=== PATIENT | male | born 1995 | race Caucasian/White ===

== ENCOUNTER → 2019-03-09 14:49 | Outpatient (CLI) | payer OTHER, SELFPAY ==
[2015-05-21 19:38] VITALS: BMI 40.5
[2019-03-09 17:35] LABS: Mean Corp Hgb Conc 31.9 g/dL (32-36); Mean Corpuscular Hgb 27.1 pg (27.0-32.0); Mean Platelet Vol. 12.2 fl (6.2-12.0); Platelet Count 230 K/mm3 (150-450); RBC Distribution Width CV 12.9 % (11.6-14.6); RBC Distribution Width SD 39.6 fl (35.1-43.9); Red Blood Count 5.53 M/mm3 (4.6-6.2); White Blood Count 11.2 K/mm3 (4.4-11.0)
[2019-03-09 18:18] LABS: Vitamin D,25 Hydroxy 20.5 ng/mL (29.95-100.01)
[2019-03-09 18:26] LABS: ALB/GLOB Ratio 0.8 RATIO (0.9-2.4); AST(SGOT) 37 U/L (15-37); Alanine Aminotransfer ALT/SGPT 64 U/L (16-61); Albumin, Serum 3.6 g/dL (3.2-5.0); Alkaline Phosphatase 80 U/L (45-117); Anion Gap 9 (5-15); BUN 17 mg/dL (7-18); BUN/Creat Ratio 21.2 RATIO (10-20); Calcium,Total 9.2 mg/dL (8.5-10.1); Chloride 103 mmol/L (98-107); Cholesterol 217 mg/dL (200); EST Glomerular Filtration Rate 124 mL/min (>60); Est Glom Filt Rate - Afr Amer 150 mL/min (>60); Globulin 4.8 g/dL (2.2-4.2); Glucose 69 mg/dL (74-106); High Density Lipoprotein 40 mg/dL; Potassium 3.7 mmol/L (3.5-5.1); Protein, Total 8.4 g/dL (6.4-8.2); Sodium Level 138 mmol/L (136-145); Thyroid Stim Hormone (TSH) 2.65 uIU/mL (0.358-3.74); Triglycerides 159 mg/dL; Very Low Density Lipoprotein 32 mg/dL (5-40)
== END ==
PROVIDERS: Family Provider Family Medicine; PCP Family Medicine; Referring Provider Family Medicine; Visit Provider Family Medicine
DX: Z00.00 Encounter for general adult medical examination without abnormal findings (principal); Z13.21 Encounter for screening for nutritional disorder; Z13.1 Encounter for screening for diabetes mellitus; Z13.220 Encounter for screening for lipoid disorders; Z13.29 Encounter for screening for other suspected endocrine disorder
CPT/HCPCS: 36415; 80053; 80061; 82306; 84443; 85027

== ENCOUNTER 2020-07-21 14:30 | Outpatient (RCR) | payer OTHER, SELFPAY ==
[2015-05-21 19:38] VITALS: BMI 40.5
== END 2020-09-26 23:59 ==
LOC: IMMUN 14:30
PROVIDERS: PCP Family Medicine; Visit Provider Family Medicine
DX: Z23 Encounter for immunization (principal)
CPT/HCPCS: 0001A; 0002A; 91300

== ENCOUNTER 2021-05-25 11:01 | Outpatient (CLI) | payer OTHER, SELFPAY ==
[2021-05-25 11:05] LABS: Bacteria 0 SEEN /hpf (None Seen); Mucous, Urine 0 SEEN /hpf (<or=2+); Red Blood Cells-Urine 0 SEEN /hpf (0-5); White Blood Cells 0 SEEN /hpf (0-5)
[2021-05-25 12:17] LABS: Color, Urine Yellow (Yellow); Glucose, Dipstick Normal (Normal); Ketone-Dipstick Negative (Negative); Leukocyte Esterase-Dipstick Negative /ul (Negative); Nitrite-Dipstick Negative (Negative); Occult Blood-Urine Negative /ul (Negative); Protein-Dipstick 30 mg/dl (Negative); Urine Bilirubin Dipstick Negative (Negative); Urine Clarity Clear (Clear); Urine Urobilinogen Normal (Normal)
[2021-05-25 12:18] LABS: Absolute Lymphocyte Count 3.24 X10^3/uL (0.83-4.51); Basophil# 0.06 X10^3/uL; Basophil% 0.6 % (0-1); Eosinophil# 0.25 X10^3/uL; Eosinophils% 2.3 % (0-5); Hematocrit 46.4 % (40-54); Hemoglobin 14.9 g/dL (13.0-16.5); Lymphocyte # 3.24 X10^3/ul (0.83-4.51); Lymphocyte % 30.2 % (19-41); Mean Corp Hgb Conc 32.1 g/dL (32-36); Mean Corpuscular Hgb 27.9 pg (27.0-32.0); Mean Corpuscular Volume 86.7 fL (80-94); Mean Platelet Vol. 11.3 fl (6.2-12.0); Monocyte# 1.08 X10^3/uL; Monocyte% 10.1 % (0-10); NRBC Flagged by Analyzer 0 % (0-5); Neutrophil # 6.03 X10^3/uL (2.7-7.7); Neutrophil % 56.1 % (47-70); Platelet Count 247 K/mm3 (150-450); RBC Distribution Width CV 12.9 % (11.6-14.6); RBC Distribution Width SD 40.5 fl (35.1-43.9); Red Blood Count 5.35 M/mm3 (4.6-6.2); White Blood Count 10.7 K/mm3 (4.4-11.0)
[2021-05-25 12:30] LABS: Squamous Epithelial Cells - UA 0-5 SEEN /hpf (0-5)
[2021-05-25 12:57] LABS: ALB/GLOB Ratio 0.8 RATIO (0.9-2.4); AST(SGOT) 73 U/L (15-37); Alanine Aminotransfer ALT/SGPT 142 U/L (16-61); Albumin, Serum 3.5 g/dL (3.2-5.0); Alkaline Phosphatase 76 U/L (45-117); Anion Gap 6 (5-15); BUN 19 mg/dL (7-18); BUN/Creat Ratio 21.8 RATIO (10-20); Calcium,Total 8.7 mg/dL (8.5-10.1); Chloride 105 mmol/L (98-107); Cholesterol 215 mg/dL (200); Creatinine, Serum 0.87 mg/dL (0.70-1.30); EST Glomerular Filtration Rate 111 mL/min (>60); Est Glom Filt Rate - Afr Amer 134 mL/min (>60); Globulin 4.2 g/dL (2.2-4.2); Glucose 94 mg/dL (74-106); High Density Lipoprotein 41 mg/dL; Potassium 4.7 mmol/L (3.5-5.1); Protein, Total 7.7 g/dL (6.4-8.2); Sodium Level 138 mmol/L (136-145); Thyroid Stim Hormone (TSH) 2.71 uIU/mL (0.358-3.74); Triglycerides 148 mg/dL; Very Low Density Lipoprotein 30 mg/dL (5-40)
== END 2021-05-25 23:59 | disposition short-term general hospital (02) ==
LOC: MFPLAB 11:03
PROVIDERS: PCP Family Medicine; Referring Provider Family Medicine; Visit Provider Family Medicine
DX: I10 Essential (primary) hypertension (principal)
CPT/HCPCS: 36415; 80053; 80061; 81001; 84443; 85025

== ENCOUNTER 2021-05-28 16:37 | Outpatient (CLI) | payer OTHER, SELFPAY ==
[2021-05-29 09:01] LABS: Hepatitis B Surface Antibody Non-Reactive; Hepatitis B Surface Antigen Non-Reactive (Nonreactive); Hepatitis C Antibody Non-Reactive (Nonreactive)
== END 2021-05-28 23:59 | disposition home or self-care (01) ==
LOC: MFPLAB 16:38
PROVIDERS: PCP Family Medicine; Visit Provider Family Medicine
DX: R94.6 Abnormal results of thyroid function studies (principal)
CPT/HCPCS: 86706; 86803; 87340

== ENCOUNTER → 2022-03-22 | Outpatient (CLI) | payer OTHER, SELFPAY ==
[2022-03-22 12:58] LABS: Bacteria 0 SEEN /hpf (None Seen); Mucous, Urine 0 SEEN /hpf (<or=2+); Red Blood Cells-Urine 0 SEEN /hpf (0-5); Squamous Epithelial Cells - UA 0 SEEN /hpf (0-5); White Blood Cells 0 SEEN /hpf (0-5)
[2022-03-22 15:25] LABS: Glucose, Dipstick Normal (Normal); Ketone-Dipstick Negative (Negative); Leukocyte Esterase-Dipstick Negative /ul (Negative); Nitrite-Dipstick Negative (Negative); Occult Blood-Urine Negative /ul (Negative); Protein-Dipstick 15 mg/dl (Negative); Specific Gravity, Urine 1.005 (1.002-1.030); Urine Bilirubin Dipstick Negative (Negative); Urine Urobilinogen Normal (Normal)
[2022-03-22 15:26] LABS: Color, Urine Yellow (Yellow); Urine Clarity Clear (Clear)
[2022-03-22 15:43] LABS: Absolute Lymphocyte Count 2.57 X10^3/uL (0.83-4.51); Absolute Neutrophil Count 4.7 X10^3/uL (2.0-7.7); Basophil# 0.04 X10^3/uL; Basophil% 0.5 % (0-1); Eosinophil# 0.21 X10^3/uL; Eosinophils% 2.5 % (0-5); Hematocrit 44.3 % (40-54); Hemoglobin 14.3 g/dL (13.0-16.5); Lymphocyte # 2.57 X10^3/ul (0.83-4.51); Lymphocyte % 30.5 % (19-41); Mean Corp Hgb Conc 32.3 g/dL (32-36); Mean Corpuscular Hgb 27.9 pg (27.0-32.0); Mean Corpuscular Volume 86.5 fL (80-94); Mean Platelet Vol. 12.1 fl (6.2-12.0); Monocyte# 0.92 X10^3/uL; Monocyte% 10.9 % (0-10); NRBC Flagged by Analyzer 0 % (0-5); Neutrophil # 4.65 X10^3/uL (2.7-7.7); Neutrophil % 55.1 % (47-70); Platelet Count 227 K/mm3 (150-450); RBC Distribution Width SD 40.3 fl (35.1-43.9); Red Blood Count 5.12 M/mm3 (4.6-6.2); White Blood Count 8.4 K/mm3 (4.4-11.0)
[2022-03-22 16:49] LABS: ALB/GLOB Ratio 0.7 RATIO (0.9-2.4); AST(SGOT) 70 U/L (15-37); Alanine Aminotransfer ALT/SGPT 145 U/L (16-61); Albumin, Serum 3.2 g/dL (3.2-5.0); Alkaline Phosphatase 69 U/L (45-117); Anion Gap 7 (5-15); BUN 13 mg/dL (7-18); BUN/Creat Ratio 18.5 RATIO (10-20); Calcium,Total 8.9 mg/dL (8.5-10.1); Chloride 106 mmol/L (98-107); Cholesterol 213 mg/dL (200); EST Glomerular Filtration Rate 141 mL/min (>60); Est Glom Filt Rate - Afr Amer 171 mL/min (>60); Globulin 4.3 g/dL (2.2-4.2); Glucose 95 mg/dL (74-106); High Density Lipoprotein 42 mg/dL; Potassium 3.9 mmol/L (3.5-5.1); Protein, Total 7.5 g/dL (6.4-8.2); Sodium Level 140 mmol/L (136-145); Thyroid Stim Hormone (TSH) 4.49 uIU/mL (0.358-3.74); Triglycerides 137 mg/dL; Very Low Density Lipoprotein 27 mg/dL (5-40)
== END | disposition home or self-care (01) ==
PROVIDERS: PCP Family Medicine; Referring Provider Family Medicine; Visit Provider Family Medicine
DX: I10 Essential (primary) hypertension (principal)
CPT/HCPCS: 36415; 80053; 80061; 81001; 84443; 85025

== ENCOUNTER → 2022-12-24 | Outpatient (CLI) | payer OTHER, SELFPAY ==
[2022-12-24 09:20] LABS: Bacteria 0 SEEN /hpf (None Seen); Mucous, Urine 0 SEEN /hpf (<or=2+); Red Blood Cells-Urine 0 SEEN /hpf (0-5); Squamous Epithelial Cells - UA 0 SEEN /hpf (0-5); White Blood Cells 0 SEEN /hpf (0-5)
[2022-12-24 10:23] LABS: Color, Urine Yellow (Yellow); Glucose, Dipstick Normal (Normal); Ketone-Dipstick Negative (Negative); Leukocyte Esterase-Dipstick Negative /ul (Negative); Nitrite-Dipstick Negative (Negative); Occult Blood-Urine 10 /ul (Negative); Protein-Dipstick 30 mg/dl (Negative); Specific Gravity, Urine 1.025 (1.002-1.030); Urine Bilirubin Dipstick Negative (Negative); Urine Clarity Clear (Clear); Urine Urobilinogen Normal (Normal)
[2022-12-24 10:29] LABS: Calcium Oxalate Crystals Ur RARE /hpf (<or=2+)
[2022-12-24 10:31] LABS: Absolute Lymphocyte Count 2.15 X10^3/uL (0.83-4.51); Absolute Neutrophil Count 4.9 X10^3/uL (2.0-7.7); Basophil# 0.03 X10^3/uL; Basophil% 0.3 % (0-1); Eosinophil# 0.61 X10^3/uL; Hematocrit 41.4 % (40-54); Hemoglobin 13.2 g/dL (13.0-16.5); Lymphocyte # 2.15 X10^3/ul (0.83-4.51); Lymphocyte % 24.6 % (19-41); Mean Corp Hgb Conc 31.9 g/dL (32-36); Mean Corpuscular Volume 87.9 fL (80-94); Monocyte# 1.06 X10^3/uL; Monocyte% 12.1 % (0-10); NRBC Flagged by Analyzer 0 % (0-5); Neutrophil # 4.86 X10^3/uL (2.7-7.7); Neutrophil % 55.7 % (47-70); Platelet Count 217 K/mm3 (150-450); RBC Distribution Width CV 12.8 % (11.6-14.6); RBC Distribution Width SD 41.6 fl (35.1-43.9); Red Blood Count 4.71 M/mm3 (4.6-6.2); White Blood Count 8.7 K/mm3 (4.4-11.0)
[2022-12-24 11:07] LABS: ALB/GLOB Ratio 0.8 RATIO (0.9-2.4); AST(SGOT) 54 U/L (15-37); Alanine Aminotransfer ALT/SGPT 105 U/L (16-61); Albumin, Serum 3.1 g/dL (3.2-5.0); Alkaline Phosphatase 60 U/L (45-117); Anion Gap 5 (5-15); BUN 13 mg/dL (7-18); Calcium,Total 8.5 mg/dL (8.5-10.1); Chloride 109 mmol/L (98-107); Cholesterol 174 mg/dL (200); Creatinine, Serum 0.77 mg/dL (0.70-1.30); EST Glomerular Filtration Rate 127 mL/min (>60); Est Glom Filt Rate - Afr Amer 154 mL/min (>60); Globulin 4.1 g/dL (2.2-4.2); Glucose 100 mg/dL (74-106); High Density Lipoprotein 36 mg/dL; Potassium 4.2 mmol/L (3.5-5.1); Protein, Total 7.2 g/dL (6.4-8.2); Sodium Level 141 mmol/L (136-145); T4 Free Direct 1.15 ng/dL (0.76-1.46); Thyroid Stim Hormone (TSH) 3.49 uIU/mL (0.358-3.74); Triglycerides 78 mg/dL; Very Low Density Lipoprotein 16 mg/dL (5-40)
[2022-12-25 16:09] LABS: Thyroglobulin Antibody < 1.0 IU/mL (0.0-0.9); Thyroid Peroxidase AB 10 IU/mL (0-34)
== END | disposition home or self-care (01) ==
LOC: MFPLAB 08:47
PROVIDERS: PCP Family Medicine; Visit Provider Family Medicine
DX: I10 Essential (primary) hypertension (principal); R79.89 Other specified abnormal findings of blood chemistry
CPT/HCPCS: 80053; 80061; 81001; 84439; 84443; 85025; 86376; 86800

== ENCOUNTER → 2022-12-26 | Outpatient (CLI) | payer OTHER, SELFPAY ==
[2022-12-26 19:05] LABS: Hepatitis B Surface Antibody Non-Reactive; Hepatitis B Surface Antigen Non-Reactive (Nonreactive); Hepatitis C Antibody Non-Reactive (Nonreactive)
== END | disposition home or self-care (01) ==
LOC: MFPLAB 17:00
PROVIDERS: PCP Family Medicine; Visit Provider Family Medicine
DX: R79.89 Other specified abnormal findings of blood chemistry (principal)
CPT/HCPCS: 36415; 86706; 86803; 87340

== ENCOUNTER → 2023-03-26 | Outpatient (CLI) | payer OTHER, SELFPAY ==
[2023-03-26 16:47] LABS: Bacteria 0 SEEN /hpf (None Seen); Mucous, Urine 0 SEEN /hpf (<or=2+); Red Blood Cells-Urine 0 SEEN /hpf (0-5); Squamous Epithelial Cells - UA 0 SEEN /hpf (0-5); White Blood Cells 0 SEEN /hpf (0-5)
[2023-03-26 17:49] LABS: Absolute Lymphocyte Count 3.13 X10^3/uL (0.83-4.51); Basophil# 0.08 X10^3/uL; Basophil% 0.7 % (0-1); Color, Urine Yellow (Yellow); Eosinophil# 0.44 X10^3/uL; Eosinophils% 3.7 % (0-5); Glucose, Dipstick Normal (Normal); Hematocrit 46.3 % (40-54); Hemoglobin 14.5 g/dL (13.0-16.5); Ketone-Dipstick Negative (Negative); Leukocyte Esterase-Dipstick Negative /ul (Negative); Lymphocyte # 3.13 X10^3/ul (0.83-4.51); Lymphocyte % 26.5 % (19-41); Mean Corp Hgb Conc 31.3 g/dL (32-36); Mean Corpuscular Hgb 27.8 pg (27.0-32.0); Mean Corpuscular Volume 88.9 fL (80-94); Mean Platelet Vol. 11.9 fl (6.2-12.0); Monocyte# 1.15 X10^3/uL; Monocyte% 9.7 % (0-10); NRBC Flagged by Analyzer 0 % (0-5); Neutrophil # 6.95 X10^3/uL (2.7-7.7); Nitrite-Dipstick Negative (Negative); Occult Blood-Urine Negative /ul (Negative); Platelet Count 257 K/mm3 (150-450); Protein-Dipstick 30 mg/dl (Negative); RBC Distribution Width CV 12.5 % (11.6-14.6); RBC Distribution Width SD 40.1 fl (35.1-43.9); Red Blood Count 5.21 M/mm3 (4.6-6.2); Specific Gravity, Urine 1.015 (1.002-1.030); Urine Bilirubin Dipstick Negative (Negative); Urine Clarity Sl. Cloudy (Clear); Urine Urobilinogen Normal (Normal); White Blood Count 11.8 K/mm3 (4.4-11.0)
[2023-03-26 18:03] LABS: Amorphous Sediment 2+
[2023-03-26 18:31] LABS: ALB/GLOB Ratio 0.7 RATIO (0.9-2.4); AST(SGOT) 94 U/L (15-37); Alanine Aminotransfer ALT/SGPT 172 U/L (16-61); Albumin, Serum 3.5 g/dL (3.2-5.0); Alkaline Phosphatase 75 U/L (45-117); Anion Gap 5 (5-15); BUN 16 mg/dL (7-18); BUN/Creat Ratio 19.9 RATIO (10-20); Calcium,Total 8.7 mg/dL (8.5-10.1); Chloride 103 mmol/L (98-107); Cholesterol 240 mg/dL (200); Creatinine, Serum 0.81 mg/dL (0.70-1.30); EST Glomerular Filtration Rate 120 mL/min (>60); Est Glom Filt Rate - Afr Amer 145 mL/min (>60); Glucose 82 mg/dL (74-106); High Density Lipoprotein 40 mg/dL; Potassium 3.8 mmol/L (3.5-5.1); Protein, Total 8.5 g/dL (6.4-8.2); Sodium Level 137 mmol/L (136-145); Thyroid Stim Hormone (TSH) 3.49 uIU/mL (0.358-3.74); Triglycerides 156 mg/dL; Very Low Density Lipoprotein 31 mg/dL (5-40)
== END | disposition home or self-care (01) ==
LOC: MFPLAB 16:46
PROVIDERS: PCP Family Medicine; Visit Provider Family Medicine
DX: E78.5 Hyperlipidemia, unspecified (principal); I10 Essential (primary) hypertension
CPT/HCPCS: 36415; 80053; 80061; 81001; 84443; 85025

== ENCOUNTER → 2024-03-02 | Outpatient (CLI) | payer OTHER, SELFPAY ==
[2024-03-02 17:45] LABS: Absolute Lymphocyte Count 2.55 X10^3/uL (0.83-4.51); Absolute Neutrophil Count 4.8 X10^3/uL (2.0-7.7); Basophil# 0.05 X10^3/uL; Basophil% 0.6 % (0-1); Eosinophil# 0.27 X10^3/uL; Eosinophils% 3.2 % (0-5); Hematocrit 45.5 % (40-54); Hemoglobin 14.3 g/dL (13.0-16.5); Lymphocyte # 2.55 X10^3/ul (0.83-4.51); Lymphocyte % 30.1 % (19-41); Mean Corp Hgb Conc 31.4 g/dL (32-36); Mean Corpuscular Hgb 27.4 pg (27.0-32.0); Mean Corpuscular Volume 87.3 fL (80-94); Mean Platelet Vol. 12.2 fl (6.2-12.0); Monocyte# 0.79 X10^3/uL; Monocyte% 9.3 % (0-10); NRBC Flagged by Analyzer 0 % (0-5); Neutrophil # 4.79 X10^3/uL (2.7-7.7); Neutrophil % 56.4 % (47-70); Platelet Count 235 K/mm3 (150-450); RBC Distribution Width CV 12.6 % (11.6-14.6); RBC Distribution Width SD 40.2 fl (35.1-43.9); Red Blood Count 5.21 M/mm3 (4.6-6.2); White Blood Count 8.5 K/mm3 (4.4-11.0)
[2024-03-02 18:19] LABS: ALB/GLOB Ratio 0.8 RATIO (0.9-2.4); AST(SGOT) 68 U/L (15-37); Alanine Aminotransfer ALT/SGPT 128 U/L (16-61); Albumin, Serum 3.5 g/dL (3.2-5.0); Alkaline Phosphatase 71 U/L (45-117); Anion Gap 6 (5-15); BUN 13 mg/dL (7-18); BUN/Creat Ratio 14.1 RATIO (10-20); Chloride 105 mmol/L (98-107); Cholesterol 213 mg/dL (200); Creatinine, Serum 0.92 mg/dL (0.70-1.30); EST Glomerular Filtration Rate 102 mL/min (>60); Est Glom Filt Rate - Afr Amer 124 mL/min (>60); Globulin 4.2 g/dL (2.2-4.2); Glucose 90 mg/dL (74-106); High Density Lipoprotein 42 mg/dL; Magnesium 1.9 mg/dL (1.6-2.6); Protein, Total 7.7 g/dL (6.4-8.2); Sodium Level 138 mmol/L (136-145); Triglycerides 133 mg/dL; Very Low Density Lipoprotein 27 mg/dL (5-40)
== END | disposition home or self-care (01) ==
LOC: MFPLAB 14:54
PROVIDERS: PCP Family Medicine; Visit Provider Family Medicine
DX: I10 Essential (primary) hypertension (principal)
CPT/HCPCS: 36415; 80053; 80061; 83735; 84443; 85025

== ENCOUNTER → 2024-10-29 | Outpatient (CLI) | payer OTHER, SELFPAY ==
[2024-10-29 12:42] LABS: Hematocrit 44.6 % (40-54); Hemoglobin 14.5 g/dL (13.0-16.5); Immature Granulocytes Count 0.050 X10^3/uL (0.0-0.0); Mean Corp Hgb Conc 32.5 g/dL (32-36); Mean Corpuscular Volume 83.7 fL (80-94); Mean Platelet Vol. 12.0 fl (6.2-12.0); NRBC Flagged by Analyzer 0 % (0-5); Platelet Count 234 K/mm3 (150-450); RBC Distribution Width CV 13.1 % (11.6-14.6); RBC Distribution Width SD 39.6 fl (35.1-43.9); Red Blood Count 5.33 M/mm3 (4.6-6.2); White Blood Count 10.8 K/mm3 (4.4-11.0)
[2024-10-29 13:31] LABS: AST(SGOT) 38 U/L (<=37); Alanine Aminotransfer ALT/SGPT 60 U/L (<=46); Albumin, Serum 3.7 g/dL (3.5-5.0); Alkaline Phosphatase 79 U/L (40-129); Anion Gap 12 (5-15); BUN 11 mg/dL (4-19); BUN/Creat Ratio 14.9 RATIO (10-20); Calcium,Total 8.9 mg/dL (7.6-11.0); Carbon Dioxide 22.2 mmol/L (21.0-32.0); Chloride 104 mmol/L (98-108); Cholesterol 202 mg/dL (<=200); Globulin 3.9 g/dL (2.2-4.2); Glucose 108 mg/dL (70-99); Low Density Lipoprotein Calc. 142 mg/dL; Potassium 4.2 mmol/L (3.3-5.1); Triglycerides 114 mg/dL; Very Low Density Lipoprotein 23 mg/dL (5-40); cholesterol:hdl ratio screen 5.39
== END | disposition home or self-care (01) ==
LOC: MFPLAB 11:18
PROVIDERS: PCP Family Medicine; Referring Provider Family Medicine; Visit Provider Family Medicine
DX: I10 Essential (primary) hypertension (principal); R73.09 Other abnormal glucose
CPT/HCPCS: 36415; 80053; 80061; 83036; 84443; 85025